=== PATIENT | female | born 1975 | race Caucasian/White ===

== ENCOUNTER 2018-11-14 08:19 | Emergency (ER) | payer OTHER, BC ==
[2018-11-14] MEDS: IBUPROFEN 200 MG TAB PO (08:46)
[2018-11-14] MEDS: ACETAMINOPHEN 325 MG TAB PO (08:46)
[2018-11-14 08:48] LABS: URINE BLOOD (Dip) POC 1+ (NEGATIVE); URINE GLUCOSE (Dip) POC Negative (NEGATIVE); URINE KETONES (Dip) POC Negative (NEGATIVE); URINE LEUKOCYTE EST (Dip) POC 2+ (NEGATIVE); URINE NITRITE (Dip) POC Negative (NEGATIVE); URINE TOTAL PROTEIN POC Negative (NEGATIVE)
== END 2018-11-14 09:36 | disposition home or self-care (01) ==
LOC: FTE 08:19
DX: H60.91 Unspecified otitis externa, right ear (principal); N39.0 Urinary tract infection, site not specified
CPT/HCPCS: 81003; 81025; 99283